=== PATIENT | male | born 1970 | race Caucasian/White ===

== ENCOUNTER 2019-01-29 04:07 | Inpatient (IN) | payer SELFPAY ==
[~2019-01-29] VITALS: Ht 188 cm; Wt 99.2 kg
[2019-01-29] MEDS ORDERED: ONDANSETRON HCL 4 MG/2 ML VIAL ONE (04:41)
[2019-01-29] MEDS ORDERED: MORPHINE SULFATE 4 MG/ML SYR/VIAL ONE (04:41)
[2019-01-29] MEDS ORDERED: SODIUM CHLORIDE 0.9% 1,000 ML IV ONE ×2 (05:00→11:34)
[2019-01-29 05:55] LABS: Basophils # (auto) 0 uL; Basophils % (auto) 0.3 % (0.0-2.0); Eosinophils # (auto) 0 uL; Eosinophils % (auto) 0.2 % (0.0-7.0); Hematocrit 43.1 % (41.0-53.0); Hemoglobin 14.7 g/dL (13.5-17.5); Lymphocytes # (auto) 0.7 uL; Lymphocytes % (auto) 6.2 % (10.0-50.0); Mean Corpuscular Hemoglobin 30.7 pg (28.0-32.0); Mean Corpuscular Volume 90.2 fL (80.0-100.0); Monocytes # (auto) 0.5 uL; Monocytes % (auto) 4.7 % (0.0-12.0); Neutrophils # (auto) 9.3 uL; Neutrophils % (auto) 88.6 % (37.0-80.0); Platelet Count (auto) 157 10^3/uL (140-450); Red Blood Cells 4.78 10^6/uL (4.5-5.90); Red Cell Distribution Width 14.1 % (11.8-14.3); White Blood Cell 10.5 10^3/uL (4.4-10.8)
[2019-01-29 06:11] LABS: Albumin 3.7 g/dL (3.4-5.0); Calcium 8.4 mg/dL (8.5-10.1)
[2019-01-29 06:16] LABS: BUN/Creatinine Ratio 13.2; Bilirubin, Total 0.3 mg/dL (0.2-1.0); Total Protein 6.7 g/dL (6.4-8.2)
[2019-01-29 06:30] LABS: Potassium 2.8 mmol/L (3.5-5.1)
[2019-01-29 07:45] LABS: Urine WBC None Seen /hpf (0 - 3)
[2019-01-29 08:08] LABS: Urine Bacteria NONE SEEN /hpf (None Seen); Urine Blood Negative /uL (Negative); Urine Mucus FEW (None Seen); Urine Specific Gravity 1.019 (1.001-1.035)
[2019-01-29 08:12] LABS: Alcohol, Urine < 3.0 mg/dL (0-5); Amphetamine Screen, Urine POSITIVE (NEGATIVE); Barbiturate Scree,Urine NEGATIVE (NEGATIVE); Benzodiazephine Screen, Urine NEGATIVE (NEGATIVE); Cannabinoid Screen, Urine POSITIVE (NEGATIVE); Cocaine Screen, Urine NEGATIVE (NEGATIVE); Opiate Scree,Urine NEGATIVE (NEGATIVE); Phencyclidine Screen, Urine NEGATIVE (NEGATIVE)
[2019-01-29] MEDS ORDERED: PROMETHAZINE HCL 25 MG/ML 1ML IV ONE (08:45)
[2019-01-29] MEDS ORDERED: MORPHINE SULFATE 4 MG/ML SYR/VIAL IV ONE (08:45)
[2019-01-29] MEDS ORDERED: SILVER SULFADIAZINE 1 % TOPICAL CREAM 50GM TOP ONE (11:45)
[2019-01-29] MEDS ORDERED: POTASSIUM CHL 20 Meq TABLET PO ONE (11:45)
[2019-01-29] MEDS ORDERED: cloNIDine HCL 0.1 MG TAB PO ONE ×2 (11:45)
[2019-01-29] MEDS: POTASSIUM CHL 20MEQ/100ML 100 ML IV SCH ×3 (12:55→17:35)
[2019-01-29] MEDS ORDERED: cloNIDine HCL 0.1 MG TAB PO PRN (16:30)
[2019-01-29] MEDS ORDERED: MORPHINE SULF INJ 2 MG/ML SYRINGE 1ML IV PRN (16:30)
[2019-01-29] MEDS ORDERED: NITROGLYCERIN 0.4 MG SL TAB SL PRN (16:30)
[2019-01-29] MEDS ORDERED: ONDANSETRON HCL 4 MG/2 ML VIAL IV PRN (16:30)
[2019-01-29] MEDS ORDERED: ACETAMINOPHEN 500 MG TAB PO PRN (16:30)
[2019-01-29] MEDS: cefTRIAXone 1GM/50ML D5W 50 ML IV SCH (17:36)
[2019-01-29] MEDS: MULTIPLE VITAMIN 10 ML, MAGNESIUM SULF SDV 50% 8 MEQ, THIAMINE INJ 100 MG in D5W/SOD CH... IV SCH (18:25)
[2019-01-29 19:54] VITALS: BP 145/86
[2019-01-29] MEDS ORDERED: cloNIDine HCL 0.1 MG TAB ONE (20:33)
[2019-01-29] MEDS ORDERED: MORPHINE SULF INJ 2 MG/ML SYRINGE 1ML ONE (20:33)
[2019-01-29] MEDS: MORPHINE SULF INJ 2 MG/ML SYRINGE 1ML IV PRN (20:35)
[2019-01-29 22:00] VITALS: BP 145/86
[2019-01-30 04:45] VITALS: BP 138/65
[2019-01-30] MEDS ORDERED: MORPHINE SULF INJ 2 MG/ML SYRINGE 1ML ONE (05:33)
[2019-01-30] MEDS: MORPHINE SULF INJ 2 MG/ML SYRINGE 1ML IV PRN ×3 (05:39→20:17)
[2019-01-30 05:59] LABS: Basophils # (auto) 0 uL; Basophils % (auto) 0.2 % (0.0-2.0); Eosinophils # (auto) 0 uL; Eosinophils % (auto) 0.4 % (0.0-7.0); Hematocrit 42.2 % (41.0-53.0); Hemoglobin 14.3 g/dL (13.5-17.5); Lymphocytes # (auto) 1.2 uL; Lymphocytes % (auto) 9.7 % (10.0-50.0); Mean Corpuscular Hemoglobin 30.1 pg (28.0-32.0); Mean Corpuscular Hgb Conc. 33.7 g/dL (32.0-36.0); Mean Corpuscular Volume 89.1 fL (80.0-100.0); Monocytes # (auto) 1.1 uL; Neutrophils # (auto) 9.8 uL; Neutrophils % (auto) 80.7 % (37.0-80.0); Nucleated Red Blood Cells % 0.1 %; Platelet Count (auto) 154 10^3/uL (140-450); Red Blood Cells 4.74 10^6/uL (4.5-5.90); Red Cell Distribution Width 14.1 % (11.8-14.3); White Blood Cell 12.2 10^3/uL (4.4-10.8)
[2019-01-30 06:18] LABS: Albumin 3.2 g/dL (3.4-5.0); Calcium 8.2 mg/dL (8.5-10.1); Magnesium 2.4 mg/dL (1.6-2.6); Potassium 3.6 mmol/L (3.5-5.1)
[2019-01-30 06:24] LABS: BUN/Creatinine Ratio 11.1; Bilirubin, Total 0.9 mg/dL (0.2-1.0); Total Protein 6.2 g/dL (6.4-8.2)
[2019-01-30] MEDS: HYDROcodone-ACET 5/325MG TAB PO PRN ×2 (08:55→17:34)
[2019-01-30] MEDS: cefTRIAXone 1GM/50ML D5W 50 ML IV SCH (08:55)
[2019-01-30 09:00] VITALS: BP 131/94
[2019-01-30] MEDS ORDERED: LORazepam 2MG/ML-1ML VIAL IV PRN (10:45)
[2019-01-30] MEDS: SILVER SULFADIAZINE 1 % TOPICAL CREAM 50GM TOP SCH (11:16)
[2019-01-30] MEDS: CLINDAMYCIN 300MG IV 50 ML IV SCH ×2 (12:02→22:00)
[2019-01-30 13:00] VITALS: BP 144/86
[2019-01-30] MEDS: MULTIPLE VITAMIN 10 ML, MAGNESIUM SULF SDV 50% 8 MEQ, THIAMINE INJ 100 MG in D5W/SOD CH... IV SCH (15:53)
[2019-01-30 17:00] VITALS: BP 156/102
[2019-01-30 22:00] VITALS: BP 140/87
[2019-01-31] MEDS: MORPHINE SULF INJ 2 MG/ML SYRINGE 1ML IV PRN ×5 (02:00→22:16)
[2019-01-31 05:00] VITALS: BP 157/97
[2019-01-31] MEDS: CLINDAMYCIN 300MG IV 50 ML IV SCH ×3 (06:12→22:15)
[2019-01-31 07:40] LABS: Basophils # (auto) 0 uL; Basophils % (auto) 0.4 % (0.0-2.0); Eosinophils # (auto) 0.1 uL; Eosinophils % (auto) 0.5 % (0.0-7.0); Hematocrit 48.5 % (41.0-53.0); Hemoglobin 16.5 g/dL (13.5-17.5); Lymphocytes # (auto) 1.2 uL; Lymphocytes % (auto) 10.7 % (10.0-50.0); Mean Corpuscular Hemoglobin 30.5 pg (28.0-32.0); Mean Corpuscular Hgb Conc. 34.1 g/dL (32.0-36.0); Mean Corpuscular Volume 89.5 fL (80.0-100.0); Monocytes # (auto) 1.1 uL; Monocytes % (auto) 10.1 % (0.0-12.0); Neutrophils # (auto) 8.8 uL; Neutrophils % (auto) 78.3 % (37.0-80.0); Nucleated Red Blood Cells % 0.1 %; Platelet Count (auto) 163 10^3/uL (140-450); Red Blood Cells 5.42 10^6/uL (4.5-5.90); Red Cell Distribution Width 14.4 % (11.8-14.3); White Blood Cell 11.3 10^3/uL (4.4-10.8)
[2019-01-31 08:02] LABS: BUN/Creatinine Ratio 10.3; Calcium 8.6 mg/dL (8.5-10.1); Potassium 3.6 mmol/L (3.5-5.1)
[2019-01-31 08:22] VITALS: BP 156/99
[2019-01-31] MEDS: cefTRIAXone 1GM/50ML D5W 50 ML IV SCH (08:43)
[2019-01-31 09:22] VITALS: BP 156/99
[2019-01-31] MEDS: SILVER SULFADIAZINE 1 % TOPICAL CREAM 50GM TOP SCH (09:25)
[2019-01-31] MEDS: MULTIPLE VITAMIN 10 ML, MAGNESIUM SULF SDV 50% 8 MEQ, THIAMINE INJ 100 MG in D5W/SOD CH... IV SCH (11:33)
[2019-01-31 14:00] VITALS: BP 157/92
[2019-01-31 16:59] VITALS: BP 147/105
[2019-01-31 21:30] VITALS: BP 142/76
[2019-02-01 05:00] VITALS: BP 148/75
[2019-02-01] MEDS: CLINDAMYCIN 300MG IV 50 ML IV SCH (07:00)
[2019-02-01] MEDS: MORPHINE SULF INJ 2 MG/ML SYRINGE 1ML IV PRN (07:01)
[2019-02-01 08:00] VITALS: BP 165/105
[2019-02-01 08:30] VITALS: BP 159/104
[2019-02-01] MEDS: SILVER SULFADIAZINE 1 % TOPICAL CREAM 50GM TOP SCH (09:42)
[2019-02-01] MEDS: cefTRIAXone 1GM/50ML D5W 50 ML IV SCH (09:47)
[2019-02-01 10:24] VITALS: BP 126/70
== END 2019-02-01 12:00 | disposition home or self-care (01) | DRG 935 ==
LOC: ER 04:07 → OVERFLOW 16:25 → EAST 19:54
PROVIDERS: ADMIT Nurse Practitioner Acute Care; ATTEND Family Medicine
DX: T25.212A Burn of second degree of left ankle, initial encounter (principal); T25.211A Burn of second degree of right ankle, initial encounter; T31.0 Burns involving less than 10% of body surface; X08.8XXA Exposure to other specified smoke, fire and flames, initial encounter; Y93.89 Activity, other specified; Y92.89 Other specified places as the place of occurrence of the external cause; Y99.8 Other external cause status; E66.9 Obesity, unspecified; Z68.28 Body mass index [BMI] 28.0-28.9, adult; E87.6 Hypokalemia; F17.210 Nicotine dependence, cigarettes, uncomplicated; I10 Essential (primary) hypertension; R09.02 Hypoxemia; Z80.8 Family history of malignant neoplasm of other organs or systems
CPT/HCPCS: 36415; 36600; 71045; 80048; 80053; 80061; 80307; 81001; 82550; 82805; 83605; 83735; 85025; 87040; 87205; 94761; 96365; 96366; 96367; 96375; G0378; J0696; J2405; J3480; J3490